=== PATIENT | female | born 1970 | race Caucasian/White ===

== ENCOUNTER 2017-05-19 15:44 | Emergency (ER) | payer MEDICAID ==
[~2017-05-19] VITALS: Ht 134.6 cm; Wt 96.7 kg
[2017-05-19 16:06] VITALS: Ht 134.6 cm; Wt 96.7 kg
[2017-05-19] MEDS ORDERED: AZIT250T94 PO (17:38)
[2017-05-19] MEDS ORDERED: PROM5SYR2 PO (17:38)
[2017-05-19] MEDS ORDERED: IBUP-1542 PO (17:38)
--- NOTE | 2017-05-19 17:41 | ERD ---
ER Documentation Chief Complaint Chief Complaint cough, congestion cp x8 days HPI This 46-year-old female presents with an 8 day history of productive cough. Pleuritic anterior chest pain and pleuritic upper back pain. Denies fevers. She has productive mucus. She denies sustained anterior chest pain. She denies any vomiting or abdominal pain. Complains of bitemporal headache as well. ROS All systems reviewed and are negative except as per history of present illness. Medications Home Meds Active Scripts Promethazine HCl/Codeine (Prometh-Codein 6.25-10 mg/5 ml) 5 Ml Syrup, 5 ML PO QID for COUGH for 5 Days 4 ounces Prov:RUDY GEORGE MD 05/19/17 Ibuprofen* (Motrin*) 600 Mg Tab, 600 MG PO Q6, #15 TAB Prov:RUDY GEORGE MD 05/19/17 Azithromycin* (Zithromax*) 250 Mg Tablet, 250 MG PO .ZPACK DIRECTED, #6 TAB TAKE 500 MG (2 TABS) THE FIRST DAY THEN 250 MG (1 TAB) DAYS 2-5 Prov:RUDY GEORGE MD 05/19/17 Allergies Allergies: Coded Allergies: No Known Allergy (Unverified , 05/19/17) PMhx/Soc Medical and Surgical Hx: pt denies Medical Hx, pt denies Surgical Hx Hx Alcohol Use: No Hx Substance Use: No Hx Tobacco Use: No Smoking Status: Never smoker Physical Exam Vitals Vital Signs Date Time Temp Pulse Resp B/P Pulse Ox O2 Delivery O2 Flow Rate FiO2 05/19/17 16:06 98.6 72 16 150/82 97 Physical Exam Const: [] Letter, [id number]. Head: Atraumatic Eyes: Normal Conjunctiva ENT: Normal External Ears, Nose and Mouth. TMs and oropharynx normal. Neck: Full range of motion..~ No meningismus. Resp: Clear to auscultation bilaterally slight rhonchi without rales or wheezing or retractions appreciated. Cardio: Regular rate and rhythm, no murmurs Abd: Soft, non tender, non distended. Normal bowel sounds Skin: No petechiae or rashes Back: No midline or flank tenderness Ext: No cyanosis, or edema Neur: Awake and alert Psych: Normal Mood and Affect Results 24 hrs Current Medications Medications (Trade) Dose Ordered Sig/Bird Route PRN Reason Start Time Stop Time Status Last Admin Dose Admin Promethazine HCl/ Codeine (Phenergan/ Codeine) 10 ml ONCE ONCE PO 05/19/17 18:00 05/19/17 18:01 Ibuprofen (Motrin) 600 mg ONCE ONCE PO 05/19/17 18:00 05/19/17 18:01 Procedures/MDM EKG: Rate/Rhythm: [Normal Sinus Rhythm] equals 75 QRS, ST, T-waves: [No changes consistent w/ acute ischemia] Impression: [No evidence of ischemia or arrhythmia] impression-normal EKG Patient presents with productive cough and worsening URI symptoms for last week. There is no signs of hypoxemia or respiratory stress and symptoms and signs do not suggest acute coronary syndrome, pulmonary pleasant. She will be treated with Zithromax, promethazine with codeine and ibuprofen. The patient was stable with no new complaints during the ER course. Clinically, there is no current evidence to suggest meningitis, sepsis, acute abdomen, pneumonia, acute coronary syndrome, pulmonary embolism, or any other emergent condition appearing to require further evaluation or hospitalization. The patient should certainly return for any new or worsening symptoms per the aftercare instructions. They should otherwise follow-up with her primary care doctor for reevaluation this week. Departure Diagnosis: Primary Impression: Bronchitis Condition: Stable Patient Instructions: Acute Bronchitis Additional Instructions: Recheck for new or worsening symptoms or primary care doctor. RUDY GEORGE MD May 19, 2017 17:41
[2017-05-19] MEDS ORDERED: PROMETHAZINE/CODEINE 5ML CUP PO ONE (18:00)
[2017-05-19] MEDS ORDERED: IBUPROFEN 600 MG TAB PO ONE (18:00)
[2017-05-19 18:12] VITALS: BP 129/86; PULSE 72; RESP 19; TEMP 98.2
== END 2017-05-19 18:13 | disposition home or self-care (01) ==
LOC: FTE 15:44
DX: J20.9 Acute bronchitis, unspecified (principal); R07.9 Chest pain, unspecified
CPT/HCPCS: 93005; Z7502; Z7610